=== PATIENT | male | born 1960 | race Caucasian/White ===

== ENCOUNTER 2023-06-17 16:46 | Emergency (ER) | payer OTHER, SELFPAY ==
[2023-06-17 17:11] VITALS: BP 122/72; PULSE 88; RESP 20; TEMP 37.6; O2SAT 95; BMI 24.8
[2023-06-17 17:18] VITALS: TEMP 38.6
--- NOTE | 2023-06-17 17:26 | ED.GENADULT ---
HPI - General Adult General Chief complaint: Fever Stated complaint: Flu, fever; cancer patient Time Seen by Provider: 06/17/23 17:01 Source: patient Mode of arrival: ambulatory Limitations: no limitations History of Present Illness HPI narrative: 63-year-old male with a history of CLL presents today with influenza. Patient was diagnosed yesterday at the urgent care. Patient states that his oncologist told him to come to the ER if his fever was above 100.3. Temperature was 101? today so he presents to the ER as instructed. His symptoms have not changed since yesterday. He continues to feel achy and weak. He has decreased appetite but has been drinking fluids. He denies chest or abdominal pain. He is not significantly short of breath. He was started on Tamiflu yesterday and has been able to keep it down without difficulty. Denies vomiting. Related Data Home Medications Medication Instructions Recorded Confirmed acalabrutinib maleate 100 mg mg PO 06/16/23 06/16/23 tablet (Calquence (acalabrutinib maleate)) acyclovir 400 mg tablet 400 mg PO BID 06/16/23 06/16/23 omeprazole 20 mg capsule,delayed 20 mg PO DAILY 06/16/23 06/16/23 release ondansetron HCl 8 mg tablet 8 mg PO 3XD 06/16/23 06/16/23 sulfamethoxazole 800 1 tab PO 3XW 06/16/23 06/16/23 mg-trimethoprim 160 mg tablet tamsulosin 0.4 mg capsule 0.8 mg PO DAILY 06/16/23 06/16/23 Previous Rx's Medication Instructions Recorded oseltamivir 30 mg capsule (Tamiflu) 30 mg PO QDAY 5 days #5 caps 06/16/23 Allergies Allergy/AdvReac Type Severity Reaction Status Date / Time No Known Drug Allergies Allergy Verified 06/16/23 14:16 Review of Systems Status of ROS: Reports: 10 or more systems reviewed and unremarkable except as noted in History and below Exam Narrative: Exam Narrative: Well-nourished well-developed patient in no acute distress, appears ill. Alert and oriented. Answers questions appropriately. Mood and affect are appropriate. Thoughts are goal oriented and rational. No tangential or magical thinking noted. Patient speaks in full sentences without needing to catch his breath. He is not tachycardic or hypoxic. He is not in any respiratory distress. HEENT: Normocephalic atraumatic. Pupils are equally round reactive to light. Extraocular muscles are intact. Conjunctivae are moist without any icterus noted. Moist mucous membranes. Posterior pharynx is normal. Neck is soft without any lymphadenopathy or thyromegaly. No masses are appreciated. Cardiovascular: Heart is regular rate and rhythm S1 and S2 are present without any murmurs. Lungs: Clear to auscultation bilaterally no wheezes rhonchi or rales are appreciated. Patient takes deep breaths without any discomfort. Abdomen: Soft and nontender nondistended with normal bowel sounds. Extremities: Bilateral lower extremities are without edema. Skin: Well perfused without any obvious rashes. Const: Vital Signs, click to edit/add: Vital Signs - 24 hr 06/17/23 17:11 06/17/23 17:18 Temperature 99.7 F H 101.5 F H Pulse Rate [Right Radial] 88 Respiratory Rate 20 Blood Pressure [Ri ght Upper Arm] 122/72 Pulse Oximetry 95 Oxygen Delivery Me thod Room Air Course Course ED Course: Given his decreased p.o. intake we decided to start an IV he received a L of normal saline. We discussed that he will continue to have fevers given that he is influenza positive. As long as he is able to maintain hydration and he is slowly improving then he can continue to self-care at home. In the event he feels like he is getting worse instead of better then he should return to the ER. Patient was in agreement and had no other questions. Vital Signs Vital signs: Initial Vital Signs Temperature 99.7 F H 06/17/23 17:11 Temperature Source Temporal Artery Scan 06/17/23 17:11 Pulse Rate 88 06/17/23 17:11 Pulse Rhythm Regular 06/17/23 17:11 Pulse Strength 3+ Normal 06/17/23 17:11 Respiratory Rate 20 06/17/23 17:11 Blood Pressure 122/72 06/17/23 17:11 Blood Pressure Mean 88 06/17/23 17:11 Blood Pressure Position Supine 06/17/23 17:11 Pulse Oximetry 95 06/17/23 17:11 Oxygen Delivery Method Room Air 06/17/23 17:11 Vital Signs Temperature 99.7 F H 06/17/23 17:11 Pulse Rate 88 06/17/23 17:11 Respiratory Rate 20 06/17/23 17:11 Blood Pressure 122/72 06/17/23 17:11 Pulse Oximetry 95 06/17/23 17:11 Oxygen Delivery Method Room Air 06/17/23 17:11 Temperature 101.5 F H 06/17/23 17:18 Pulse Rate 88 06/17/23 17:11 Respiratory Rate 20 06/17/23 17:11 Blood Pressure 122/72 06/17/23 17:11 Pulse Oximetry 95 06/17/23 17:11 Oxygen Delivery Method Room Air 06/17/23 17:11 Medical Decision Making MDM Narrative Medical decision making narrative: 63-year-old male with CLL and influenza. Plan per above. Discharge Plan Discharge Clinical Impression: Chronic lymphocytic leukemia, Influenza Patient Disposition: Home, Self-Care Condition: Stable Additional Instructions: Make sure to stay well hydrated. Okay to use ibuprofen or Tylenol as needed for fever reduction. If you feel like you are getting worse instead of slowly getting better, then you should return to the ER. Prescriptions: No Action tamsulosin 0.4 mg capsule 0.8 mg PO DAILY Calquence (acalabrutinib mal) 100 mg tablet PO sulfamethoxazole-trimethoprim 800-160 mg tablet 1 tab PO 3XW omeprazole 20 mg capsule,delayed release(DR/EC) 20 mg PO DAILY ondansetron HCl 8 mg tablet 8 mg PO 3XD acyclovir 400 mg tablet 400 mg PO BID oseltamivir [Tamiflu] 30 mg capsule 30 mg PO QDAY 5 Days Qty: 5 0RF Follow Up/Referrals: Steve Baltazar MD [Primary Care Provider] - Stand Alone Forms: [employer] Info Instructions
[2023-06-17] MEDS: 0.9 % SODIUM CHLORIDE 1000 ml 1,000 ML IV (18:10)
[2023-06-17 18:11] VITALS: TEMP 38.4
[2023-06-17] MEDS: IBUPROFEN 200 MG TABLET 600 MG PO (18:11)
[2023-06-17 18:33] VITALS: TEMP 38.4
[2023-06-17 18:57] VITALS: BP 122/68; PULSE 80; RESP 20; TEMP 37.9; O2SAT 95
== END 2023-06-17 18:58 | disposition home or self-care (01) ==
LOC: ED 17:38
PROVIDERS: Emergency Provider Family Medicine; PCP Surgery
DX: J10.1 Influenza due to other identified influenza virus with other respiratory manifestations (principal); C91.10 Chronic lymphocytic leukemia of B-cell type not having achieved remission
CPT/HCPCS: 99283; 99284; A9270; J7030

== ENCOUNTER 2023-12-19 16:00 | Outpatient (RCR) | payer OTHER, SELFPAY | END 2024-04-10 15:27 | disposition home or self-care (01) | PROVIDERS: PCP Surgery; Visit Provider Family Medicine | DX: M54.50 Low back pain, unspecified (principal); Z51.89 Encounter for other specified aftercare | CPT/HCPCS: 97110; 97140; 97161 ==

== ENCOUNTER 2024-01-31 08:16 | Outpatient (CLI) | payer OTHER, SELFPAY | END 2024-01-31 08:17 | disposition home or self-care (01) | PROVIDERS: PCP Surgery; Visit Provider Family Medicine | DX: M54.16 Radiculopathy, lumbar region (principal) | CPT/HCPCS: 64483; J1100; Q9966 ==

== ENCOUNTER 2025-04-05 07:58 | Emergency (ER) | payer BC, SELFPAY ==
[2025-04-05 08:00] VITALS: BP 97/61; PULSE 79; RESP 18; TEMP 36.8; O2SAT 94; BMI 25.1
--- OUTSIDE RECORDS SUMMARY | 2025-04-05 08:01 | XMS_ITS | Clinical Summary ---
Author Organization [facility] Address [facility] [place] [address] Care Team Providers Care Lime Boiler Name Role Phone Steve Baltazar MD Primary Care Provider [phone] Monik Hartman MD Unavailable [phone] Allergies No known active allergies Medications ferrous gluconate 324 mg (37 mg iron) tabletIndicatio ns:Restless legs Take 1 tablet by mouth once daily with a meal. 30 tablet 6 9 Active SUMAtriptan (IMITREX) 50 mg tabletIndicatio ns:Chronic daily headache Take 1 Tablet (50 mg) by mouth every 2 hours if needed for Migraine. Give at minimum 2hrs apart. Max Dose: 100mg per 24hrs. 10 Tablet 3 2 Active Additional Information Patient taking differently:50 mg Oral Q 2H PRN, Migraine,Give at minimum 2hrs apart. Max Dose: 100mg per 24hrs.Has never needed to use this medication, Reported on 04/03/2025 ibuprofen (ADVIL; MOTRIN) 600 mg tabletIndicatio ns:Tendonitis of knee, left Take 1 Tablet (600 mg) by mouth three times daily with meals. Maximum of 3200 mg in 24 hours. 40 Tablet 2 Active cetirizine (ZYRTEC) 10 mg tablet Take 10 mg by mouth once daily. Active omeprazole (PRILOSEC) 20 mg Delayed-Release capsuleIndicati ons:Chronic GERD TAKE 1 CAPSULE(20 MG) BY MOUTH EVERY DAY BEFORE A MEAL 90 Capsule 3 4 Active tamsulosin 0.4 mg capsuleIndicati ons:BPH without urinary obstruction Take 1 Capsule (0.4 mg) by mouth once daily after a meal. 90 Capsule 3 4 Active fexofenadine HCl (CASI ORAL) Take by mouth. Activ e fluticasone (50 mcg per actuation) nasal solution (FLONASE)Indica tions:Chronic sinusitis, unspecified location Inhale 1 [place] in both nostrils once daily. 16 g 5 Active trimethoprim-richards lfamethoxazole 160-800 mg tabIndications: CLL (chronic lymphocytic leukemia) (HC) TAKE 1 TABLET ON MONDAYS, WEDNESDAYS AND FRIDAYS 12 Tablet 6 5 Active acyclovir (ZOVIRAX) 400 mg tabletIndicatio ns:CLL (chronic lymphocytic leukemia) (HC) Take 1 Tablet (400 mg) by mouth two times daily. 180 Tablet 3 5 Active acalabrutinib (Calquence (acalabrutinib mal)) 100 mg tabletIndicatio ns:CLL (chronic lymphocytic leukemia) (HC) Take 1 Tablet (100 mg) by mouth every 12 hours. 60 Tablet 2 04/01/2025 11:00 AM CDT 5 Active azithromycin (ZITHROMAX) 500 mg tabletIndicatio ns:Campylobacte r diarrhea Take 1 Tablet (500 mg) by mouth every 24 hours for 7 days. 7 Tablet 5 025 Active vancomycin (VANCOCIN) 125 mg capsuleIndicati ons:Acute diarrhea Take 1 Capsule (125 mg) by mouth four times daily for 10 days. 40 Capsule 5 025 Discontin ued(*Med complete/ Regimen complete/ Level of care change) Active Problems Problem Noted Date Diagnosed Date Chronic right-sided low back pain without sciati ca 02/01/2024 Overview (02/01/2024): ~ 2004: lumbar fusion L5-S1, Dr. Church. ~ January 2024: L4-L5 TF epidural steroid injection by Dr. Garcia. Lymphocytic colitis 06/13/2019 Overview (06/13/2019): Colonoscopy 05/2019 lymphocytic colitis, repeat in 10 years CLL (chronic lymphocytic leukemia) 02/06/2018 Acromioclavicular joint arthritis 04/22/2010 SLEEP APNEA 09/13/2007 AHI- 16 10/02/2007 Restless legs syndrome (RLS) 10/02/2007 Esophageal reflux 11/12/2006 Overview (04/26/2016): EGD 07/2010 hiatal hernia , repeat EGD in 5 years EGD 03/2016 normal, no follow up EGD needed Anxiety state, unspecified 11/12/2006 Irritable bowel syndrome Resolved Problems Problem Noted Date Diagnosed Date Resolved Date Depressive disorder, not elsewhere classified 11/13/19 07 02/07/2008 Encounters Date Type Department Care Team Description 04/05/2025 Nurse Triage [facility] [address] [place] [address] Steve Baltazar MD Bleeding 04/04/[address] [address] Gaby Hartley MD Follow Up 04/03/2025 2:00 PM CDT Orders Only [place] [address] [facility] [address] [place] <No scans attached> 04/03/2025 10:50 AM CDT Ancillary Procedure [address] [address] Arrived 04/03/2025 10:00 AM CDT Office Visit [address] [address] Gaby Hartley MD Diarrhea (for 3 days) 04/03/2025 Travel 03/27/2025 4:00 PM CDT Office Visit [place] [address] [place] [address] Monik Hartman MD Follow Up (3 month follow up/) 03/27/2025 Travel 2025 4:00 PM CDT Orders Only [facility] [address] [facility] [place] [address] [place], [place] Lab 2025 Travel 02/26/2025 4:00 PM CDT Orders Only [facility] [address] [place] [address] Lab, [place] Lab 02/26/2025 Travel 01/29/2025 4:00 PM CDT Orders Only [facility] [address] [place] [address] [place], [place] Lab 01/29/2025 Travel 01/25/2025 Orders Only [facility] [address] [place] [address] Monik Hartman MD <No scans attached> 01/21/2025 Refill [facility] [address] [place] [address] Monik Hartman MD Refill Request (Acyclovir) 01/11/2025 Telephone [facility] [address] [place] [address] Monik Hartman MD medication 01/03/2025 4:00 PM CDT Office Visit [facility] [address] [place] [address] Monik Hartman MD Follow Up 01/03/2025 Travel from Last 3 Months Immunizations Immunization Administration Dates Next Due COVID-19 vaccine (Thefuture.fm 30mcg/0.3mL) P MD AuraV 10/07/2020,09/16/2020 Influenza, IIV4 04/23/2019,05/12/2018 Pneumococcal Conj 20-valent (Prevnar 20) 022 Td (Age >=7 Years) 03/04/2006 Tdap 04/06/2013 Zoster (Shingrix-RZV, recombinant) 01/12/2022, Family History Medical History Relation Name Comments Diabetes Brother 2 type 2 Diabetes Brother 3 type 2 Other Father COPD Cancer Mother asbestos Other Mother pacer, CAD Relation Name Status Comments Brother 1 Alive x4 Brother 2 Brother 3 Daughter Alive x1 Father Maternal Grandfather Maternal Grandmother Mother Paternal Grandfather Paternal Grandmother Sister Alive x3 Son Alive x1 Social History Tobacco Use Types Packs/Day Years Used Date Smoking Tobacco: Never Smokeless Tobacco: Never Tobacco Cessation:Counseling Given: Yes Alcohol Use Standard Drinks/Week Comments Yes 6 (1 standard drink = 0.6 oz pur e alcohol) PHQ-2 Answer Date Recorded PHQ-2 TOTAL SCORE 1 2022 Social Connections Answer Date Recorded Do you often feel lonely or isolated from those around you? 0 04/03/2025 Alcohol Use Answer Date Recorded How often do you have a drink containing alcohol ? 3 10/24/2024 How many drinks containing a lcohol do you have on a typical day when you are drinking? 0 10/24/2024 How often do you have five or more drinks on one occasion? 0 10/24/2024 Financial Resource Strain Answer Date R ecorded Difficulty of Paying Living Expenses 3 04/03/2025 Difficulty of Paying Living Expenses Not on file 04/03/2025 Food Insecurity Answer Date Recorded Do you worry your food will run out before you are able to buy more? 1 04/03/2025 Transportation Needs Answer Date Record ed Does lack of transportation keep you from medica l appointments? 1 04/03/2025 Does lack of transportation keep you from work, meetings or getting things that you need? 1 04/03/2025 Housing Stability Answer Date Recorded What is your housing situation today? 1 04/03/2025 Utilities Answer Date Recorded Do you have trouble paying f or utilities (for example, heat, electricity, water, phone)? 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 Not on file Not on file Not on file Obstetrics History Last Filed Vital Signs Vital Sign Reading Time Taken Comments Blood Pressure 111/69 04/03/2025 10:01 AM CDT Pulse 103 04/03/2025 10:01 AM CDT Temperature 37.3 C (99.2 F) 04/03/2025 10:01 AM CDT Respiratory Rate 16 03/27/2025 3:56 PM CDT Oxygen Saturation 96% 04/03/2025 10:01 AM CDT Inhaled Oxygen Concentration - - Weight 83 kg (183 lb) 04/03/2025 10:01 AM CDT Height 184 cm (6' 0.44) 04/03/2025 10:01 AM CDT Body Mass Index 24.52 04/03/2025 10:01 AM CDT Plan of Treatment Upcoming Encounters Date Type Department Care Team (Late st Contact Info) Description 04/09/2025 1:35 PM CDT Telemedicine [facility] [address] [place] [address] Steve Baltazar MD [address] [place] [address] 04/22/2025 4:00 PM CDT Orders Only [facility] [address] [place] [address] Lab, [place] 05/20/2025 4:00 PM PAYMENT PROCESSOR Orders Only [facility] [address] [place] [address] Lab[place] 06/24/2025 4:00 PM PAYMENT PROCESSOR Orders Only [facility] [address] [place] [address] Lab[place] 06/26/2025 4:00 PM PAYMENT PROCESSOR Office Visit [facility] [address] [place] [address] [address] [place] [address] Monik Hartman MD [address] [facility] [address] [place] [address] Health Maintenance Due Date Last Done Comments COVID-19 vaccine series (3 - Pfizer risk series) 11/04/2020 10/07/2020, 09/16/2020 RSV vaccine for adults or (1 - Risk 60-74 years 1-dose series) 2021 Lipids for age 45-75 01/31/2023 01/31/2018, 03/19/2014, 04/06/2013, Additional history exists Depression screening for age 12+ 2023 2022, 02/19/2022, 02/16/2022, Additional history exists Tetanus booster 04/06/2023 04/06/2013, 03/04/2006 Influenza Vaccine (#1) 2025 04/23/2019, 2017 BMI (ht and wt on same day) for age 18+ 04/03/2026 04/03/2025, 02/08/2023, 12/01/2021, Additional history exists Colonoscopy through age 75 06/12/202906/12, 06/12/2019, 09/22/2007 HIV for age 15-65 Completed 01/31/2018 Hepatitis C screening for age 18-79 Completed 01/31/2018 Pneumococcal series for age 50+ Completed 12/01/2021 Zoster (shingles) series for age 50+ Completed 01/12/2022, 10/19/2021 Hepatitis B series for 19+ Aged Out N o longer eligible based on patient's age to complete this topic Medical Devices Implanted Type Area Stations Superintendent Device Identifier Shelf Expiration Date Model / Serial / Lot Port Low Profile Slim W/6fr 1 Lmn [employer] - [id number] Implanted:Qty: 1 on 02/21/2018 by Joshua Lopez MD at [facility] Right: Chest [employer] 10/25/2019 [id number] / / [id number] Procedures Procedure Name Priority Date/Time Associated Diagnosis Comments CRYPTOSPORIDIUM GIARDIA RAPID ANTIGEN Routine 04/03/2025 2:04 PM CDT Acute diarrhea Fever, unspecified fever cause CLL (chronic lymphocytic leukemia) (HC) Abdominal pain, generalized CLOSTRIDIOIDES DIFFICILE TOXIN PCR Routine 04/03/2025 12:55 PM CDT Acute diarrhea Fever, unspecified fever cause CLL (chronic lymphocytic leukemia) (HC) Abdominal pain, generalized STOOL PATHOGEN MULTIPLEX PCR PANEL Routine 04/03/2025 12:55 PM CDT Acute diarrhea Fever, unspecified fever cause CLL (chronic lymphocytic leukemia) (HC) Abdominal pain, generalized CT ABDOMEN PELVIS W STAT 04/03/2025 1 1:04 AM CDT Acute diarrhea Fever, unspecified fever cause CLL (chronic lymphocytic leukemia) (HC) Abdominal pain, generalized RED CELL MORPHOLOGY STAT 04/03/2025 1 0:52 AM CDT Acute diarrhea Fever, unspecified fever cause CLL (chronic lymphocytic leukemia) (HC) Abdominal pain, generalized PLATELET ESTIMATE STAT 04/03/2025 10: 52 AM CDT Acute diarrhea Fever, unspecified fever cause CLL (chronic lymphocytic leukemia) (HC) Abdominal pain, generalized MANUAL DIFFERENTIAL STAT 04/03/2025 1 0:52 AM CDT Acute diarrhea Fever, unspecified fever cause CLL (chronic lymphocytic leukemia) (HC) Abdominal pain, generalized CBC WITH AUTO DIFFERENTIAL STAT 04/03/2025 10:52 AM CDT Acute diarrhea Fever, unspecified fever cause CLL (chronic lymphocytic leukemia) (HC) Abdominal pain, generalized COMP METABOLIC PANEL STAT 04/03/2025 10:52 AM CDT Acute diarrhea Fever, unspecified fever cause CLL (chronic lymphocytic leukemia) (HC) Abdominal pain, generalized CBC WITH AUTO DIFFERENTIAL STAT 04/03/2025 10:52 AM CDT Acute diarrhea Fever, unspecified fever cause CLL (chronic lymphocytic leukemia) (HC) Abdominal pain, generalized DIFFERENTIAL MANUAL (QUEST REFLEX ONLY) Routine 2025 3:57 PM CDT Lymphocytic colitis CLL (chronic lymphocytic leukemia) (HC) CBC WITH AUTO DIFFERENTIAL Routine 2025 3:57 PM CDT Lymphocytic colitis CLL (chronic lymphocytic leukemia) (HC) LD,TOTAL Routine 2025 3:57 PM CDT Lymphocytic colitis CLL (chronic lymphocytic leukemia) (HC) COMP METABOLIC PANEL Routine 2025 3:57 PM CDT Lymphocytic colitis CLL (chronic lymphocytic leukemia) (HC) CBC WITH AUTO DIFFERENTIAL Routine 2025 3:57 PM CDT Lymphocytic colitis CLL (chronic lymphocytic leukemia) (HC) CBC WITH AUTO DIFFERENTIAL Routine 02/26/2025 4:03 PM CDT Lymphocytic colitis CLL (chronic lymphocytic leukemia) (HC) LD,TOTAL Routine 02/26/2025 4:03 PM CDT Lymphocytic colitis CLL (chronic lymphocytic leukemia) (HC) COMP METABOLIC PANEL Routine 02/26/2025 4:03 PM CDT Lymphocytic colitis CLL (chronic lymphocytic leukemia) (HC) CBC WITH AUTO DIFFERENTIAL Routine 02/26/2025 4:03 PM CDT Lymphocytic colitis CLL (chronic lymphocytic leukemia) (HC) CBC WITH AUTO DIFFERENTIAL Routine 01/29/2025 3:50 PM CDT Lymphocytic colitis CLL (chronic lymphocytic leukemia) (HC) COMP METABOLIC PANEL Routine 01/29/2025 3:50 PM CDT Lymphocytic colitis CLL (chronic lymphocytic leukemia) (HC) LD,TOTAL Routine 01/29/2025 3:50 PM CDT Lymphocytic colitis CLL (chronic lymphocytic leukemia) (HC) COLONOSCOPY 06/12/2019 10:43 AM PAYMENT PROCESSOR ANTI HIV 1/2 Routine 01/31/2018 4:20 PM CDT Weight loss, unintentional Night sweats ANTI HCV Routine 01/31/2018 4:20 PM CDT Need for hepatitis C screening test LIPID PANEL W REFLEX MEASURED LDL Routine 01/31/2018 4:20 PM CDT Screening cholesterol level from Last 3 Months or Most Recently Relevant to Health Maintenance Results * CRYPTOSPORIDIUM GIARDIA RAPID ANTIGEN (04/03/2025 2:04 PM CDT) [facility] GIARDIA AND CRYPTOSPORIDIUM ANTIGEN PANEL SEE NOTE 04/04/2025 4:15 PM CDT [employer] Comment: GIARDIA AG, EIA, STOOL Micro Number: [id number] Test Status: Final Specimen Source: Stool Specimen Quality: Adequate Giardia Result 1: Not Detected Reference Range: Not Detected NOTE: Due to intermittent shedding, one negative sample does not necessarily rule out the presence of a parasitic infection. GIARDIA AND CRYPTOSPORIDIUM ANTIGEN PANEL SEE NOTE 04/04/2025 4:15 PM CDT [employer] Comment: CRYPTOSPORIDIUM ANTIGEN, EIA Micro Number: [id number] Test Status: Final Specimen Source: Stool Specimen Quality: Adequate Cryptosporidium: Not Detected Reference Range: Not Detected NOTE: Due to intermittent shedding, one negative sample does not necessarily rule out the presence of a parasitic infection. Stool STOOL SPECIMEN / Unknown Non-Blood / Unknown 04/03/2025 2:04 PM CDT 04/03/2025 3:46 PM CDT us Gaby Hartley MD MICROBIOLOGY Final Resul t [employer] [address] [address], * (ABNORMAL) STOOL PATHOGEN MULTIPLEX PCR PANEL (04/03/2025 12:55 PM CDT) [facility] Campylobacter Detected(A) NOT Detected 04/04/2025 9:19 PM CDT [facility] Salmonella NOT Detected NOT Detected 04/04/2025 9:19 PM CDT [facility] Shigella NOT Detected NOT Detected 04/04/2025 9:19 PM CDT [facility] Vibrio NOT Detected NOT Detected 04/04/2025 9:19 PM CDT [facility] Yersinia Enterocolitica NOT Detected NOT Detected 04/04/2025 9:19 PM CDT [facility] Shiga Toxin 1 NOT Detected NOT Detected 04/04/2025 9:19 PM CDT [facility] Shiga Toxin 2 NOT Detected NOT Detected 04/04/2025 9:19 PM CDT [facility] Norovirus NOT Detected NOT Detected 04/04/2025 9:19 PM CDT [facility] Rotavirus NOT Detected NOT Detected 04/04/2025 9:19 PM CDT [facility] Stool STOOL SPECIMEN / Unknown Non-Blood / Unknown 04/03/2025 12:55 PM CDT 04/03/2025 1:31 PM CDT Narrative [facility] - 04/04/2025 9:19 PM CDT This test is a Culture Independent Diagnostic Test (CIDT) therefore isolates are not available for susceptibility testing. Antibiotic treatment is often contraindicated and may be detrimental in cases of enteric infections, thus routine susceptibility testing is not recommended. Gaby Hartley MD MICROBIOLOGY Final Resul t Performing Organization Address [facility] Co de Phone Number [facility] [address] [place] [address], * CLOSTRIDIOIDES DIFFICILE TOXIN PCR (04/03/2025 12:55 PM CDT) CLOSTRIDIUM DIFFICILE TOXIN/GDH W/REFL TO PCR SEE NOTE 04/04/2025 4:30 PM CDT [employer] Comment: CLOSTRIDIUM DIFFICILE TOXIN/GDH W/REFL TO PCR Micro Number: [id number] Test Status: Final Specimen Source: Stool Specimen Quality: Adequate GDH Antigen: Not Detected Toxin A and B: Not Detected COMMENT: No toxigenic C. difficile detected For additional information, please refer to http://education.[employer]/faq/GSH849 (This link is being provided for informational/educational purposes only.) Stool STOOL SPECIMEN / Unknown Non-Blood / Unknown 04/03/2025 12:55 PM CDT 04/03/2025 1:34 PM CDT Gaby Hartley MD MICROBIOLOGY Final Resul t Performing Organization Address [facility] Co de Phone Number [employer] [facility] [address] [place] [address], * CT ABDOMEN PELVIS W (04/03/2025 11:04 AM CDT) Anatomical Region Laterality Modality Abdomen, Pelvis, AORTA, LIVER, SPLEEN Computed Tomography 04/03/2025 11:2 7 AM CDT Impressions 04/03/2025 11:27 AM CDT 1. Mucosal hyperenhancement, mesenteric hyperemia and fluid within the colonic lumen consistent with a diffuse colitis/diarrheal illness. 2. Indeterminate lesion within segment 7 of the liver. This is present dating back to the 2019 examination although shows mild interval growth over the interval. As clinically desired, liver MRI may have improved characterization. 3. Other incidental findings as detailed above. Please note that all CT scans at this facility use dose modulation, iterative reconstruction, and/or weight-based dosing when appropriate to reduce radiation dose to as low as reasonably achievable. Dictated by Artemio Vazquez MD @ 04/03/2025 11:27:15 AM (Electronically Signed) Narrative 04/03/2025 11:27 AM CDT For Patients: As a result of the 21st Century Cures Act, medical imaging exams and procedure reports are released immediately into your electronic medical record. You may view this report before your referring provider. If you have questions, please contact your health care provider. INDICATION: Fever and acute diarrhea. Chronic lymphocytic leukemia. Abdominal pain. TECHNIQUE: Axial images were obtained from the diaphragm to the pubic symphysis. Reformats were obtained in the coronal and sagittal plane. IV Contrast: 100 cc Omnipaque 350 Oral Contrast: None COMPARISON: Abdomen and pelvis CT 09/19/2018 FINDINGS: Lower chest: Unremarkable. Liver: Normal in contour. Hypodense 13 millimeter lesion within segment 7 measuring 47 Hounsfield units (2, 36; prior 7 mm). 7 millimeter cyst within segment 6. Gallbladder and bile ducts: Status post cholecystectomy. Normal diameter common duct. Spleen: Normal in contour with amorphous hypodense lesion measuring 8 millimeters although this is stable dating back to the 2019 exam. Pancreas: Unremarkable. No mass or inflammation. Adrenal glands: Unremarkable. No nodules. Kidneys: Symmetric renal enhancement without hydronephrosis. Left renal hypodense lesions, subcentimeter. These are too small for characterization although likely represent renal cysts. Vasculature: No evidence of abdominal aortic aneurysm. Retroperitoneal lymph nodes measure up to 8 millimeters, similar to the prior exam. GI tract: The stomach is decompressed. Small bowel decompressed. Hyperemia within the colonic mesentery with fluid in the colonic lumen and submucosal hyperenhancement. This is best appreciated at the level of the rectosigmoid (2, 180). Trace free fluid in the deep pelvis. Pelvis: Mild prostatic enlargement. Bones: Status post L5-S1 posterior fusion with posterior rods and pedicle screws Procedure Note Artemio Vazquez MD - 04/03/2025 For Patients: As a result of the Cures Act, medical imagingexams and procedure reports are released immediately into your electronicmedical record. You may view this report before your referring provider.If you have questions, please contact your health care provider. INDICATION: Fever and acute diarrhea. Chronic lymphocytic leukemia. Abdominal pain. TECHNIQUE: Axial images were obtained from the diaphragm to the pubic symphysis. Reformats were obtained in the coronal and sagittal plane. IV Contrast: 100 cc Omnipaque 350 Oral Contrast: None COMPARISON: Abdomen and pelvis CT 09/19/2018 FINDINGS: Lower chest: Unremarkable. Liver: Normal in contour. Hypodense 13 millimeter lesion within segment 7measuring 47 Hounsfield units (2, 36; prior 7 mm). 7 millimeter cystwithin segment 6. Gallbladder and bile ducts: Status post cholecystectomy. Normal diametercommon duct. Spleen: Normal in contour with amorphous hypodense lesion measuring 8millimeters although this is stable dating back to the 2019 exam. Pancreas: Unremarkable. No mass or inflammation. Adrenal glands: Unremarkable. No nodules. Kidneys: Symmetric renal enhancement without hydronephrosis. Left renalhypodense lesions, subcentimeter. These are too small for characterizationalthough likely represent renal cysts. Vasculature: No evidence of abdominal aortic aneurysm. Retroperitoneallymph nodes measure up to 8 millimeters, similar to the prior exam. GI tract: The stomach is decompressed. Small bowel decompressed. Hyperemiawithin the colonic mesentery with fluid in the colonic lumen andsubmucosal hyperenhancement. This is best appreciated at the level of therectosigmoid (2, 180). Trace free fluid in the deep pelvis. Pelvis: Mild prostatic enlargement. Bones: Status post L5-S1 posterior fusion with posterior rods and pediclescrews IMPRESSION: 1. Mucosal hyperenhancement, mesenteric hyperemia and fluid within thecolonic lumen consistent with a diffuse colitis/diarrheal illness. 2. Indeterminate lesion within segment 7 of the liver. This is presentdating back to the 2019 examination although shows mild interval growthover the interval. As clinically desired, liver MRI may have improvedcharacterization. 3. Other incidental findings as detailed above. Please note that all CT scans at this facility use dose modulation,iterative reconstruction, and/or weight-based dosing when appropriate toreduce radiation dose to as low as reasonably achievable. Dictated by Artemio Vazquez MD @ 04/03/2025 11:27:15 AM (Electronically Signed) us Gaby Hartley MD CT Final Resul t * (ABNORMAL) CBC WITH AUTO DIFFERENTIAL (04/03/2025 10:52 AM CDT) Only the most recent of3 resultswithin the time period is included. WHITE BLOOD COUNT 17.4(H) 4.5 - 11.0 thou/cu mm 04/03/2025 1:42 PM [facility] RED BLOOD COUNT 5.10 4.30 - 5.90 mil/cu mm 04/03/2025 1:42 PM [facility] HEMOGLOBIN 15.3 13.5 - 17.5 g/dL 04/03/2025 1:42 PM [facility] HEMATOCRIT 45.0 37.0 - 53.0 % 04/03/2025 1:42 PM [facility] MCV 88 80 - 100 fL 04/03/2025 1:42 PM [facility] MCH 30.0 26.0 - 34.0 pg 04/03/2025 1:42 PM [facility] MCHC 34.0 32.0 - 36.0 g/dL 04/03/2025 1:42 PM [facility] RDW 13.3 11.5 - 15.5 % 04/03/2025 1:42 PM CDT [facility] PLATELET COUNT 88(L) 140 - 440 thou/cu mm 04/03/2025 1:42 PM CDT [facility] MPV 9.3 6.5 - 11.0 fL 04/03/2025 1:42 PM CDT [facility] Blood BLOOD SPECIMEN / Unknown [facility] / Unknown 04/03/2025 10:52 AM CDT 04/03/2025 10:52 AM CDT us Gaby Hartley MD HEMATOLOGY Final Resul t Performing Organization Address [facility] Number [facility] [address] [place] [address] * RED CELL MORPHOLOGY (04/03/2025 10:52 AM CDT) RBC COMMENT RBC morphology appears normal RBC morphology appears normal, RBC morphology within normal limits for newborns. 04/03/2025 1:42 PM CDT [facility] Blood BLOOD SPECIMEN / Unknown [facility] / Unknown 04/03/2025 10:52 AM CDT 04/03/2025 10:52 AM CDT us Gaby Hartley MD HEMATOLOGY Final Resul t Performing Organization Address [facility] Number [facility] [address] [place] [address] * (ABNORMAL) PLATELET ESTIMATE (04/03/2025 10:52 AM CDT) PLATELET ESTIMATE Decreased (A) Adequate, No estimate 04/03/2025 1:42 PM CDT [facility] Blood BLOOD SPECIMEN / Unknown [facility] / Unknown 04/03/2025 10:52 AM CDT 04/03/2025 10:52 AM CDT us Gaby Hartley MD HEMATOLOGY Final Resul t Performing Organization Address City/[facility]/ZIP Co de Phone Number [facility] [address] [place] [address] * (ABNORMAL) MANUAL DIFFERENTIAL (04/03/2025 10:52 AM CDT) [facility] % NEUTROPHILS 61.0 % 04/03/2025 1:42 PM CDT [facility] % LYMPHOCYTES 35.0 % 04/03/2025 1:42 PM [facility] % MONOCYTES 4.0 % 04/03/2025 1:42 PM [facility] % EOSINOPHILS 0.0 % 04/03/2025 1:42 PM [facility] % BASOPHILS 0.0 % 04/03/2025 1:42 PM [facility] NEUTROPHILS ABSOLUTE 10.6(H) 1.7 - 7.0 thou/cu mm 04/03/2025 1:42 PM [facility] LYMPHOCYTES ABSOLUTE 6.1(H) 0.9 - 2.9 thou/cu mm 04/03/2025 1:42 PM T [facility] MONOCYTES ABSOLUTE 0.7 <0.9 thou/cu mm 04/03/2025 1:42 PM [facility] EOSINOPHILS ABSOLUTE 0.0 <0.5 thou/cu mm 04/03/2025 1:42 PM [facility] BASOPHILS ABSOLUTE 0.0 <0.3 thou/cu mm 04/03/2025 1:42 PM [facility] Blood BLOOD SPECIMEN / Unknown [facility] / Unknown 04/03/2025 10:52 AM CDT 04/03/2025 10:52 AM CDT us Gaby Hartley MD HEMATOLOGY Final Resul t [facility] [address] [place], [place] [id number] * (ABNORMAL) STAT Comp Metabolic Panel CMP (04/03/2025 10:52 AM CDT) Only the most recent of4 resultswithin the time period is included. [facility] SODIUM 141 136 - 145 mmol/L 04/03/2025 1:51 PM [facility] POTASSIUM 3.9 3.5 - 5.1 mmol/L 04/03/2025 1:51 PM [facility] CHLORIDE 105 98 - 107 mmol/L 04/03/2025 1:51 PM [facility] CO2,TOTAL 26 22 - 29 mmol/L 04/03/2025 1:51 PM [facility] ANION GAP 10 5 - 18 04/03/2025 1:51 PM [facility] GLUCOSE 104(H) 70 - 99 mg/dL 04/03/2025 1:51 PM [facility] CALCIUM 9.1 8.8 - 10.4 mg/dL 04/03/2025 1:51 PM [facility] Comment: Reference ranges for this test were updated on 05/01/2024 to reflect our healthy population more accurately. Reference range changes are not retroactively applied to results, but previous results using the same methodology can be interpreted in the context of the new reference range. BUN 17 8 - 23 mg/dL 04/03/2025 1:51 PM [facility] CREATININE 1.32(H) 0.70 - 1.20 mg/dL 04/03/2025 1:51 PM [facility] BUN/CREAT RATIO 13 10 - 20 1:51 PM [facility] eGFR 60(L) >90 mL/min/1. 73m2 04/03/2025 1:51 PM [facility] Comment:As of 2021, eG FR is calculated by the CKD-EPI creatinine equation without race adjustment. eGFR can be influenced by muscle mass, exercise, and diet. The reported eGFR is an estimation only and is only applicable if the renal function is stable. ALBUMIN 4.2 4.0 - 4.9 g/dL 04/03/2025 1:51 PM [facility] PROTEIN,TOTAL 6.4 6.0 - 8.0 g/dL 04/03/2025 1:51 PM [facility] BILIRUBIN,TOTAL 1.4(H) 0.0 - 1.2 mg/dL 04/03/2025 1:51 PM CDT [facility] ALK PHOSPHATASE 71 40 - 129 IU/L 04/03/2025 1:51 PM CDT [facility] ALT (SGPT) 21 10 - 50 IU/L 04/03/2025 1:51 PM CDT [facility] AST (SGOT) 22 10 - 50 IU/L 04/03/2025 1:51 PM CDT [facility] Blood BLOOD SPECIMEN / Unknown [facility] / Unknown 04/03/2025 10:52 AM CDT 04/03/2025 10:52 AM CDT us Gaby Hartley MD CHEMISTRY Final Resul t [facility] [address] [place] [address] * (ABNORMAL) DIFFERENTIAL MANUAL ([facility] ONLY) (2025 3:57 PM CDT) NEUTROPHILS 62.6 % 03/26/2025 6:23 AM CDT [facility] ABSOLUTE NEUTROPHILS 6949 1500 - 7800 cells/uL 03/26/2025 6:23 AM CDT [facility] LYMPHOCYTES 33.3 % 03/26/2025 6:23 AM CDT [facility] ABSOLUTE LYMPHOCYTES MANUAL 3696 850 - 3900 cells/uL 03/26/2025 6:23 AM CDT [facility] MONOCYTES 4.1 % 03/26/2025 6:23 AM CDT [facility] ABSOLUTE MONOCYTES 455 200 - 950 cells/uL 03/26/2025 6:23 AM CDT [facility] EOSINOPHILS 0 % 03/26/2025 6:23 AM CDT [facility] ABSOLUTE EOSINOPHILS 0(L) 15 - 500 cells/uL 03/26/2025 6:23 AM CDT [facility] BASOPHILS 0 % 03/26/2025 6:23 AM CDT [facility] ABSOLUTE BASOPHILS 0 0 - 200 cells/uL 03/26/2025 6:23 AM CDT [facility] DIFFERENTIAL, MANUAL NOTE SEE NOTE 03/26/2025 6:23 AM CDT [facility] Comment: Although an automated CBC was ordered, our instrumentation detected an abnormality on your patient's specimen requiring us to perform a manual review. Blood BLOOD SPECIMEN / Unknown [facility] / Unknown 2025 3:57 PM CDT 2025 3:57 PM CDT Monik Hartman MD LABORATORY Final R esult Performing Organization Address [facility]/ZIP Co de Phone Number [facility] [address] [address], [place] [phone] * LD,TOTAL (2025 3:57 PM CDT) Only the most recent of3 resultswithin the time period is included. [facility] LD 124 120 - 250 U/L 03/26/2025 5:28 AM CDT [facility] Blood BLOOD SPECIMEN / Unknown [facility] / Unknown 2025 3:57 PM CDT 2025 3:57 PM CDT Monik Hartman MD CHEMISTRY Final R esult Performing Organization Address [facility] de Phone Number [employer] [address] [address], [place] [phone] * (ABNORMAL) CBC AND DIFFERENTIAL (01/29/2025 3:50 PM CDT) [facility] WHITE BLOOD CELL COUNT 11.4(H) 3.8 - 10.8 Thousand/u L [facility] RED BLOOD CELL COUNT 5.05 4.20 - 5.80 Million/uL [facility] HEMOGLOBIN 15.1 13.2 - 17.1 g/dL [facility] HEMATOCRIT 45.7 38.5 - 50.0 % [facility] MCV 90.5 80.0 - 100.0 fL [facility] MCH 29.9 27.0 - 33.0 pg [facility] MCHC 33.0 32.0 - 36.0 g/dL [facility] Comment: For adults, a slight decrease in the calculated MCHC value (in the range of 30 to 32 g/dL) is most likely not clinically significant; however, it should be interpreted with caution in correlation with other red cell parameters and the patient's clinical condition. RDW 12.9 11.0 - 15.0 % [facility] PLATELET COUNT 109(L) 140 - 400 Thousand/u L [facility] MPV 9.9 7.5 - 12.5 fL [facility] ABSOLUTE NEUTROPHILS 3,340 1,500 - 7,800 cells/uL [facility] ABSOLUTE LYMPHOCYTES 7,399(H) 850 - 3,900 cells/uL [facility] ABSOLUTE MONOCYTES 581 200 - 950 cells/uL [facility] ABSOLUTE EOSINOPHILS 46 15 - 500 cells/uL [facility] ABSOLUTE BASOPHILS 34 0 - 200 cells/uL [facility] NEUTROPHILS 29.3 % [facility] LYMPHOCYTES 64.9 % [facility] MONOCYTES 5.1 % [facility] EOSINOPHILS 0.4 % [facility] BASOPHILS 0.3 % [facility] CBC (INCLUDES DIFF/PLT) COMMENTS [facility] Comment: Review of peripheral smear confirms automated results. Blood BLOOD SPECIMEN / Unknown 01/29/2025 3:50 PM CDT 01/29/2025 3:51 PM CDT us Monik Hartman MD HEMATOLOGY Final R esult [facility] [address] [place] [address], [facility] [address] [place] [address] * COLONOSCOPY (06/12/2019 10:43 AM PAYMENT PROCESSOR) 06/12/2019 10:4 3 AM PAYMENT PROCESSOR Narrative Transcriptions Sergey Santiago MD - 06/12/2019 11:48 AM CST Patient Name: Carter Christine Procedure Date: 06/12/2019 Gender: Male Date of : 1960 Admit Type: Outpatient Procedure: Colonoscopy Proceduralist: Sergey Santiago MD , Araceli Velasco RN(Nurse) Indications/Pre-Op Diagnosis: Screening for colorectal malignant neoplasm, Last colonoscopy: August 2007, Incidental diarrhea noted Medications: Fentanyl 100 micrograms IV, Midazolam 4 mgIV, The level of sedation administered wasmoderate Procedure Description: The patient had risks, benefits and alternatives explained to andgave informed consent. The patient had a stable cardiopulmonary status and judged an adequate candidate for conscious sedation. The [id number] was passed through the anus and advanced to 8cm into the ileum. The colonoscopy was performed without difficulty. The patient tolerated the procedure well. The quality of the bowel preparation was good. The terminal ileum, ileocecal valve,appendiceal orifice, and rectum were photographed. Complications: No immediate complications. Estimated Blood Loss & Specimen: Estimated blood loss: none. Specimen collected - Yes and sent to Laboratory Findings: The perianal and digital rectal examinations were normal. The terminal ileum appeared normal. Biopsies were taken with a cold forceps for histology. The entire examined colon appeared normal on direct and retroflexion views. Biopsies for histology were taken with a cold forceps from the entire colon for evaluation of microscopic colitis. Impressions/Post-Op Diagnosis: - The examined portion of the ileum was normal. Biopsied. - The entire examined colon is normal on direct and retroflexionviews. - Biopsies were taken with a cold forceps from the entire colon for evaluation of microscopic colitis. Recommendation: - Patient has a contact number available for emergencies. The signsand symptoms of potential delayed complications were discussed with the patient. Return to normal activities tomorrow. Written discharge instructions were provided to the patient. - Resume previous diet. - Continue present medications. - Await pathology results. - Repeat colonoscopy in 10 years for screening purposes. - Perform an upper GI endoscopy if biopsies of the colon arenormal. Moderate Sedation: Moderate (conscious) sedation was administered by the endoscopy nurse and supervised by the endoscopist. The following parameters were monitored: oxygen saturation, heart rate, respiratory rate, blood pressure, adequacy of pulmonary ventilation and reponse to care. [facility] and nursing notes for moderate sedation details. Total physician intraservice time was 20 minutes. Sergey Santiago MD 06/12/2019 11:48:03 AM This report has been signed electronically. Note Initiated On: 06/12/2019 10:43 AM Procedure Code(s): --- Professional --- 07455, Colonoscopy, flexible; with biopsy, single or multiple Diagnosis Code(s): --- Professional --- Z12.11, Encounter for screening formalignant neoplasm of colon CPT copyright 2018 [employer]. All rights reserved. The codes documented in this report are preliminary and upon lumber puller reviewmay be revised to meet current compliance requirements. Scope In: 11:26:03 AM Scope Withdrawal Time 0 hours 12 minutes 49 seconds Scope Out: 11:43:41 AM us Sergey Santiago MD PROCEDURE ORD Final Res ult * (ABNORMAL) LIPID PANEL W REFLEX MEASURED LDL (01/31/2018 4:20 PM CDT) CHOLESTEROL,TOTAL 150 100 - 199 mg/dL 02/01/2018 2:33 PM CDT [facility] TRIGLYCERIDES 116 <150 mg/dL 02/01/2018 2:33 PM CDT [facility] HDL CHOLESTEROL 25(L) >40 mg/dL 8 2:33 PM CDT [facility] NON-HDL CHOLESTEROL 125 <145 mg/dl 02/01/2018 2:33 PM CDT [facility] CHOL/HDL RATIO 6.00(H) <4.50 02/01/2018 2:33 PM CDT [facility] LDL CHOLESTEROL 102 <=130 mg/dL 02/01/2018 2:33 PM CDT [facility] PROVIDER ORDERED STATUS RANDOM 02/01/2018 2:33 PM CDT [facility] Blood BLOOD SPECIMEN / Unknown Venipuncture / Unknown 01/31/2018 4:20 PM CDT 01/31/2018 4:20 PM CDT Steve Baltazar MD CHEMISTRY Final Resu lt [facility] [address] [place] [address], [place] * ANTI HCV [22870.2] (01/31/2018 4:20 PM CDT) Pathologist [facility] HEPATITIS C ANTIBODY Non-React kaitlynn Non-React kaitlynn 02/01/2018 2:32 PM CDT [facility] Comment:Antibodies to HCV no t detected; does not exclude the possibility of exposure to HCV. Blood BLOOD SPECIMEN / Unknown Venipuncture / Unknown 01/31/2018 4:20 PM CDT 01/31/2018 4:20 PM CDT Steve Balatzar MD SEND OUTS Final Resu lt [facility] [address] [place] [address], [place] * ANTI HIV 1/2 (01/31/2018 4:20 PM CDT) Pathologist [facility] HIV-1/HIV-2 ANTIBODY Non-Reacti ve Non-Reacti ve 02/01/2018 2:31 PM CDT [facility] Comment:HIV-1 p24 and HIV-1/ HIV-2 Ab not detected. Blood BLOOD SPECIMEN / Unknown Venipuncture / Unknown 01/31/2018 4:20 PM CDT 01/31/2018 4:20 PM CDT us Steve Baltazar MD SEND OUTS Final Resu lt [facility] [address] [place] [address], [place] from Last 3 Months or Most Recently Relevant to Health Maintenance Insurance [facility] Advance Directives * Full Code (Latest Code Status on File) Date Activated Date Inactivated Comments 02/21/2018 11:33 AM 02/21/2018 10:42 PM * Full Code Date Activated Date Inactivated Comments 02/07/2018 7:44 AM 02/08/2018 2:09 AM Care Teams Lime [employer] Relationship Specialty Start Date End Date Steve Baltazar MD [facility] [place] [address] PCP - General Family Practice 01/20/18 Monik Hartman MD [address] [facility] [address] [place] [address] Oncology 11/04/22
--- NOTE | 2025-04-05 08:13 | ED.GENADULT ---
HPI - General Adult General Chief complaint: Diarrhea Stated complaint: diarrhea Time Seen by Provider: 04/05/25 08:10 History of Present Illness HPI narrative: Patient presents to the emergency department complaining of diarrhea. Patient states this has been going on for about 1 week and now he has noticed some blood in his stool. Patient denies any abdominal pain at this time. Denies any nausea or vomiting. 65-year-old man presenting to emergency department with concern of diarrhea. Multiple episodes daily. Began about a week ago. Initially did measure a fever of a little over 101. Is not having any abdominal pain. No vomiting. But has been experiencing mild intermittent nausea. No rashes. Underlying history of CLL and lymphocytic colitis. So does have a history of diarrhea. Historically takes Imodium as needed. Does also take Calquence and 3 times a week Bactrim as infection prophylaxis. Was seen in clinic 2 days ago with stool test done and labs. Due to fever I think was initiated on vancomycin with concern of C difficile colitis. Stool culture results are not yet available. This morning saw blood in his stool. Admittedly if he did not have blood in his stool he would not necessarily be here. Feels that is keeping up with fluids. Was recommended though for Gatorade and sounds like that irritates his stomach. 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 Related Data Home Medications ?Medication ?Instructions ?Recorded ?Confirmed acalabrutinib maleate 100 mg mg PO 06/16/23 06/16/23 tablet (Calquence (acalabrutinib maleate)) acyclovir 400 mg tablet 400 mg PO BID 06/16/23 04/05/25 omeprazole 20 mg capsule,delayed 20 mg PO DAILY 06/16/23 04/05/25 release ondansetron HCl 8 mg tablet 8 mg PO 3XD 06/16/23 04/05/25 sulfamethoxazole 800 1 tab PO 3XW 06/16/23 04/05/25 mg-trimethoprim 160 mg tablet tamsulosin 0.4 mg capsule 0.8 mg PO DAILY 06/16/23 04/05/25 vancomycin 125 mg capsule 125 mg PO QID 04/05/25 04/05/25 Allergies Allergy/AdvReac Type Severity Reaction Status Date / Time No Known Drug Allergies Allergy Verified 04/05/25 08:04 Review of Systems Status of ROS: Reports: 6 or more systems reviewed and unremarkable except as noted in History and below [facility] Social History Smoking Status: Never smoker Do you use any of these nicotine containing products: None Second hand tobacco smoke exposure: No How often do you have a drink containing alcohol: 2-3 times a week AUDIT-C Alcohol total score: 3 Non-prescribed substance use: denies use service: No Exam Narrative: Exam Narrative: Pleasant. NAD. Laughs easily. Accompanied by spouse. Calm. Initial blood pressure noted at 97/61. Breathing easily. Lungs appear clear. Heart in regular rate and rhythm. Abdomen is flat soft and not particularly tender. Bowel sounds present. Well-perfused extremities without edema. Const: Vital Signs, click to edit/add: Vital Signs - 24 hr 04/05/25 08:00 04/05/25 08:49 04/05/25 09:05 Temperature 98.3 F Pulse Rate [Right Pulse Oximeter] 79 64 Pulse Rate [orthos tatic lying Left P ulse Oximeter] 64 Pulse Rate [orthos tatic sitting Left Pulse Oximeter] 73 Pulse Rate [orthos tatic standing Lef t Pulse Oximeter] 87 Respiratory Rate 18 16 Blood Pressure [Ri ght Upper Arm] 97/61 111/65 Blood Pressure [or thostatic lying Ri ght Arm] 111/65 Blood Pressure [or thostatic sitting Right Arm] 108/69 Blood Pressure [or thostatic standing Right Arm] 95/65 Pulse Oximetry 94 Oxygen Delivery Me thod Room Air Room Air 04/05/25 09:06 04/05/25 09:08 Temperature Pulse Rate [Right Pulse Oximeter] 73 87 Pulse Rate [orthos tatic lying Left P ulse Oximeter] Pulse Rate [orthos tatic sitting Left Pulse Oximeter] Pulse Rate [orthos tatic standing Lef t Pulse Oximeter] Respiratory Rate 16 16 Blood Pressure [Ri ght Upper Arm] 108/69 95/65 Blood Pressure [or thostatic lying Ri ght Arm] Blood Pressure [or thostatic sitting Right Arm] Blood Pressure [or thostatic standing Right Arm] Pulse Oximetry 95 94 Oxygen Delivery Me thod Room Air Room Air Documenting provider has reviewed patient's vital signs: yes Course Vital Signs Vital signs: Initial Vital Signs Temperature 98.3 F 04/05/25 08:00 Temperature Source Temporal Artery Scan 04/05/25 08:00 Pulse Rate 79 04/05/25 08:00 Pulse Rhythm Regular 04/05/25 08:00 Pulse Strength 3+ Normal 04/05/25 08:00 Respiratory Rate 18 04/05/25 08:00 Blood Pressure 97/61 04/05/25 08:00 Blood Pressure Mean 73 04/05/25 08:00 Blood Pressure Position Sitting 04/05/25 08:00 Pulse Oximetry 94 04/05/25 08:00 Oxygen Delivery Method Room Air 04/05/25 08:00 Vital Signs Temperature 98.3 F 04/05/25 08:00 Pulse Rate 79 04/05/25 08:00 Respiratory Rate 18 04/05/25 08:00 Blood Pressure 97/61 04/05/25 08:00 Pulse Oximetry 94 04/05/25 08:00 Oxygen Delivery Method Room Air 04/05/25 08:00 Temperature 98.3 F 04/05/25 08:00 Pulse Rate 87 04/05/25 09:08 Respiratory Rate 16 04/05/25 09:08 Blood Pressure 95/65 04/05/25 09:08 Pulse Oximetry 94 04/05/25 09:08 Oxygen Delivery Method Room Air 04/05/25 09:08 Medical Decision Making MDM Narrative Medical decision making narrative: Appears to have infectious diarrhea/colitis of some sort. Otherwise worsening of underlying colitis. Pending already collected culture results are not sure that much more needs to be done as otherwise relatively asymptomatic and provided vitals are stable. With immunosuppression history would consider repeating labs to prompt further evaluation or concern. Clostridium difficile is in differential along with other like salmonella. He does not feel he needs IV hydration. Did check orthostatics and these were negative. Stat labs collected. Normal white count. CRP those little bit elevated at 3.2. And potassium little bit low at 3.2. Did obtain labs from clinic 2 days ago and see that white count was elevated at 17.4; normal today. CT with IV contrast from 2 days ago of the abdomen and pelvis showed mucosal hyperenhancement, mesenteric hyperemia and fluid within the colonic lumen consistent with a diffuse colitis/diarrheal illness? As looking for further information, we see that stool culture results have just resulted from outpatient clinic and is negative for C difficile and salmonella, among others. Positive however for Campylobacter Think this could be consistent with exposure to chickens/poultry. I return to discuss this with Mr. Christine and spouse to find that they were just contacted by primary clinic to arrange to begin course of azithromycin and he is to stop vancomycin. This sounds very reasonable. Appears well for discharge. See patient discharge plan for further discussion Continue to focus on hydration. Travel Insurance Agent diet. Consider electrolyte drinks as mentioned prior. Your potassium has dropped a little bit. There are certainly many higher potassium-containing foods, drink other than bananas out there. supervisor liquid yeast that prescription of azithromycin at your pharmacy and start it as soon as possible. Stop your vancomycin as per recommendations. Be seen for marked increase in persistent abdominal pain, repeated vomiting, recurring fever, intractable diarrhea, worsening lightheadedness, worsening bleeding. Medical Records Medical records reviewed: Yes I reviewed the patient's medical records Lab Data Lab results reviewed: Yes I reviewed the patient's lab results Labs: Lab Results 04/05/25 Range/Units 08:50 WBC 8.21 (4.50-11.00) K/uL RBC 4.43 (4.30-5.90) m/uL Hgb 13.3 L (13.5-17.5) gm/dL Hct 38.3 (37.0-53.0) % MCV 87 (80-100) fL MCH 30 (26-34) pg MCHC 35 (32-36) gm/dL RDW Coeff of Melva 12.5 (11.5-15.5) % Plt Count 77 L (140-440) K/uL Neut % (Auto) 33.7 L (42.0-72.0) % Lymph % (Auto) 43.4 (20-44) % [place] % (Auto) 22.3 H (0.0-11.0) % Eos % (Auto) 0.1 (0.0-7.0) % Baso % (Auto) 0.4 (0.0-3.0) % Neut # (Auto) 2.80 (1.7-7.0) K/uL Lymph # (Auto) 3.56 H (0.90-2.90) K/uL [place] # (Auto) 1.80 H (0.00-0.90) K/UL Eos # (Auto) 0.01 (0.00-0.50) K/uL Baso # (Auto) 0.03 (0.00-0.30) K/uL Abs Immat Gran (auto) 0.01 (0.00-0.30) K/uL Imm/Tot Granulo (auto) 0.1 % Diff Slide Review Acceptable Review (Acceptable) Sodium 135 (135-149) mmol/L Potassium 3.2 L (3.6-5.1) mmol/L Chloride 105 (96-114) mmol/L Carbon Dioxide 28 (20-32) mmol/L Anion Gap 2 L (7-15) mEq/L BUN 12 (7-30) mg/dL Creatinine 1.0 (0.5-1.5) mg/dL Estimated Creat Clear 81.91 Estimated GFR 84 ml/min Glucose 99 (60-115) mg/dL Calcium 8.2 L (8.4-10.6) mg/dL C-Reactive Protein 3.2 H (0.5-1.0) mg/dL Discharge Plan Discharge Clinical Impression: Campylobacter diarrhea, Colitis, Hypokalemia Condition: Stable Additional Instructions: Continue to focus on hydration. Travel Insurance Agent diet. Consider electrolyte drinks as mentioned prior. Your potassium has dropped a little bit. There are certainly many higher potassium-containing foods, drink other than bananas out there. supervisor liquid yeast that prescription of azithromycin at your pharmacy and start it as soon as possible. Stop your vancomycin as per recommendations. Be seen for marked increase in persistent abdominal pain, repeated vomiting, recurring fever, intractable diarrhea, worsening lightheadedness, worsening bleeding. Prescriptions: No Action tamsulosin 0.4 mg capsule 0.8 mg PO DAILY Calquence (acalabrutinib mal) 100 mg tablet PO sulfamethoxazole-trimethoprim 800-160 mg tablet 1 tab PO 3XW omeprazole 20 mg capsule,delayed release(DR/EC) 20 mg PO DAILY ondansetron HCl 8 mg tablet 8 mg PO 3XD acyclovir 400 mg tablet 400 mg PO BID vancomycin 125 mg capsule 125 mg PO QID Follow Up/Referrals: Steve Baltazar MD [Primary Care Provider, [facility]]
[2025-04-05 08:49] VITALS: BP 108/69; BP 111/65; BP 95/65; PULSE 64; PULSE 73; PULSE 87
[2025-04-05 08:58] LABS: Hematocrit* 38.3 % (37.0-53.0); Hemoglobin* 13.3 gm/dL (13.5-17.5); Immature Granulocytes Abs Auto 0.01 K/uL (0.00-0.30); Immature Granulocytes Pct Auto 0.1 %; Lymphocytes Absolute Auto 3.56 K/uL (0.90-2.90); Mean Corpuscular HGB Conc 35 gm/dL (32-36); Mean Corpuscular Hemoglobin 30 pg (26-34); Mean Corpuscular Volume 87 fL (80-100); RDW Coefficient of Variation % 12.5 % (11.5-15.5); Red Blood Count* 4.43 m/uL (4.30-5.90); White Blood Count* 8.21 K/uL (4.50-11.00)
[2025-04-05 09:05] VITALS: BP 111/65; PULSE 64; RESP 16
[2025-04-05 09:06] VITALS: BP 108/69; PULSE 73; RESP 16; O2SAT 95
[2025-04-05 09:08] VITALS: BP 95/65; PULSE 87; RESP 16; O2SAT 94
[2025-04-05 09:09] LABS: Chloride* 105 mmol/L (96-114); Sodium* 135 mmol/L (135-149)
[2025-04-05 09:10] LABS: Potassium* 3.2 mmol/L (3.6-5.1)
[2025-04-05 09:13] LABS: Anion Gap 2 mEq/L (7-15); Blood Urea Nitrogen* 12 mg/dL (7-30); Calcium* 8.2 mg/dL (8.4-10.6); Carbon Dioxide* 28 mmol/L (20-32); Creatinine* 1.0 mg/dL (0.5-1.5); Est. Creatinine Clearance* 81.91; Estimated Glomerular Filt Rate 84 ml/min; Glucose* 99 mg/dL (60-115)
[2025-04-05 09:24] LABS: Slide Review Reflex Yes
[2025-04-05 09:27] LABS: Slide Review Acceptable Review (Acceptable)
== END 2025-04-05 09:58 | disposition home or self-care (01) ==
PROVIDERS: Emergency Provider Family Medicine; PCP Surgery
DX: A04.5 Campylobacter enteritis (principal); K52.9 Noninfective gastroenteritis and colitis, unspecified; E87.6 Hypokalemia
CPT/HCPCS: 36415; 80048; 85025; 86140; 87045; 87046; 87427; 87493; 99283; 99284